=== PATIENT | female | born 1990 | race Two or more races ===

== ENCOUNTER 2023-10-10 03:14 | Emergency (ER) | payer MEDICAID ==
[~2023-10-10] VITALS: Ht 154.9 cm; Wt 70.0 kg
[2023-10-10 03:19] VITALS: TEMP 98.5
[2023-10-10 03:51] LABS: BILIRUBIN,URINE NEGATIVE (Neg); CLARITY,URINE SLIGHTLY CLOUDY (Clear); COLOR,URINE YELLOW (Yellow); GLUCOSE, URINE NEGATIVE (Neg); KETONES,URINE NEGATIVE (Neg); LEUKOCYTE ESTERASE ,URINE NEGATIVE (Neg); NITRITES, URINE NEGATIVE (Neg); OCCULT BLOOD,URINE MODERATE (Neg); PROTEIN,URINE NEGATIVE (Neg); UROBILINOGEN,URINE 0.2 E.U/dL (0.2-1.0)
[2023-10-10 03:52] LABS: URINE HCG NEGATIVE (NEG)
[2023-10-10 03:55] LABS: BASOPHILS # (AUTO) 0.1 X10'3 (0-0.2); BASOPHILS % (AUTO) 0.5 % (0-1); EOSINOPHILS # (AUTO) 0.8 X10'3 (0-0.9); EOSINOPHILS % (AUTO) 5.8 % (0-6); HEMATOCRIT 42.7 % (35.0-45.0); HEMOGLOBIN 14.5 g/dl (12.0-16.0); LYMPHOCYTES # (AUTO) 2.7 X10'3 (1.1-4.8); LYMPHOCYTES % (AUTO) 21.1 % (21-51); MEAN CORPUSCULAR HEMOGLOBIN 30.3 PG (27.0-31.0); MONOCYTES % (AUTO) 7.8 % (2-12); NEUTROPHILS # (AUTO) 8.4 X10'3 (1.8-7.7); NEUTROPHILS % (AUTO) 64.8 % (42-75); PLATELET COUNT 272 X10'3 (140-440); WHITE BLOOD COUNT 12.9 X10'3 (4.5-11.0)
[2023-10-10 03:57] LABS: UA COLLECTION TYPE CLN CATCH MIDSTREAM
[2023-10-10 04:01] LABS: BACTERIA,URINE FEW /HPF (Neg); MUCUS STRANDS MANY /LPF (Neg); SQUAMOUS EPITHELIAL CELL,UR MANY /LPF (FEW); WBC,URINE 0-4 /HPF (0-4)
[2023-10-10 04:05] LABS: ALANINE AMINOTRANSFERASE 27 U/L (12-78); ALBUMIN 3.5 G/DL (3.4-5.0); ALKALINE PHOSPHATASE 83 IU/L (46-116); ANION GAP 11 (8-16); ASPARTATE AMINO TRANSFERASE 17 U/L (10-37); BILIRUBIN,TOTAL 0.6 MG/DL (0.1-1.0); BLOOD UREA NITROGEN 11 MG/DL (7-18); BUN/CREATININE RATIO 16.2 (10.0-20.0); CALCIUM 8.4 MG/DL (8.5-10.1); CHLORIDE 106 MMOL/L (99-107); CREATININE 0.68 MG/DL (0.40-0.90); GLUCOSE 106 MG/DL (70-104); LIPASE 30 U/L (16-77); POTASSIUM 3.7 MMOL/L (3.5-5.1); SODIUM 141 MMOL/L (135-145); TOTAL CARBON DIOXIDE 24.5 MMOL/L (24-32); eCRCL 88 ML/MIN; eGFR > 90 ML/MIN
[2023-10-10] MEDS: ondansetron/PF 4mg/2ml inj IV ONE (04:34)
[2023-10-10] MEDS: fentaNYL/PF 50MCG/1 ML 2ML syringe IV ONE (04:35)
[2023-10-10] MEDS: mag hydrox/Alum hydrox/simeth 30ml oral suspension PO ONE ×2 (06:04→06:06)
[2023-10-10] MEDS: LIDOcaine 2% Viscous 15ml cup MM ONE ×2 (06:04→06:06)
[2023-10-10] MEDS: famotidine/PF 10 mg/ml inj IV ONE (06:11)
[2023-10-10] MEDS: pantoprazole 40 MG vial IV ONE (06:11)
[2023-10-10 06:33] VITALS: BP 102/66; PULSE 65; RESP 18; O2SAT 99
== END 2023-10-10 06:34 | disposition home or self-care (01) ==
LOC: ER 03:15
DX: R10.11 Right upper quadrant pain (principal); R11.2 Nausea with vomiting, unspecified; R12 Heartburn
CPT/HCPCS: 36415; 76700; 80053; 81001; 81025; 83690; 85025; 96374; 96375; 99285; C9113; J2405; J3010; J3490